=== PATIENT | female | born 1940 | race Hispanic/Latino ===

== ENCOUNTER 2017-06-25 14:44 | Inpatient (IN) | payer MEDICARE, BC ==
[2017-06-25 14:44] VITALS: BMI 23.8
[2017-06-25 15:56] LABS: BASO # 0.1 K/uL (0.0-0.2); BASO % 0.4 % (0.0-2.0); EOS # 0.1 K/uL (0.0-0.7); EOS % 0.3 % (0.0-4.0); HEMATOCRIT 36.6 % (34.0-47.0); LYMPH # 0.7 K/uL (1.0-4.3); LYMPH % 4.8 % (20.0-40.0); MEAN CELL VOLUME 90.2 fL (81.0-99.0); MEAN CORPUSCULAR HEMOGLOBIN 30.6 pg (27.0-31.0); MEAN CORPUSCULAR HGB CONC 33.9 g/dL (33.0-37.0); MEAN PLATELET VOLUME 10.7 fL (7.2-11.7); MONO # 1.3 K/uL (0.0-0.8); MONO % 8.4 % (0.0-10.0); PLATELET COUNT 252 K/uL (130-400); RED CELL DISTRIBUTION WIDTH 13.5 % (11.5-14.5)
[2017-06-25 15:57] LABS: WHITE BLOOD COUNT 15.3 K/uL (4.8-10.8)
[2017-06-25] MEDS ORDERED: Albuterol-Ipratrop 3 mg / 0.5 (3 ml) UD IH STA (16:03)
[2017-06-25 16:04] LABS: CHLORIDE 87 mmol/L (98-107)
[2017-06-25 16:05] LABS: POTASSIUM 3.1 mmol/L (3.6-5.2); SODIUM 129 mmol/L (132-148)
[2017-06-25 16:07] LABS: ALB/GLOB RATIO 1.1 (1.0-2.1); ALKALINE PHOSPHATASE 88 U/L (38-126); AST/SGOT 14 U/L (14-36); BILIRUBIN,TOTAL 0.7 mg/dL (0.2-1.3); CARBON DIOXIDE 31 mmol/L (22-30); GFR AFRICAN-AMERICAN > 60; TOTAL PROTEIN 7.4 g/dL (6.3-8.3)
[2017-06-25 16:08] LABS: ALT/SGPT 28 U/L (9-52); BLOOD UREA NITROGEN 17 mg/dL (7-17); CALCIUM 8.8 mg/dl (8.6-10.4); GLUCOSE,RANDOM 133 mg/dL (65-105)
[2017-06-25] MEDS ORDERED: Albuterol-Ipratrop 3 mg / 0.5 (3 ml) UD ONE (16:15)
--- NOTE | 2017-06-25 16:30 | RAD ---
HISTORY: cough COMPARISON: Chest x-ray performed 05/27/16 TECHNIQUE: Chest, one view. FINDINGS: LUNGS: Bilateral hilar prominence. Subtle patchy infiltrates/opacities, right upper, right middle, and left basilar atelectasis. Right apical pleural thickening/fluid. Please note that chest x-ray has limited sensitivity for the detection of pulmonary masses. PLEURA: Small left pleural effusion. No definite pneumothorax . CARDIOVASCULAR: Heart size appears within normal limits. OSSEOUS STRUCTURES: Scoliosis convex to the right. Osseous demineralization. Multilevel degenerative changes of the spine. VISUALIZED UPPER ABDOMEN: Unremarkable. OTHER FINDINGS: None. IMPRESSION: Bilateral hilar prominence. Patchy infiltrates/ opacities, right upper, right middle, and left basilar atelectasis. Right apical pleural thickening/fluid. Small left pleural effusion.
[2017-06-25] MEDS ORDERED: cefTRIAXone IV 1 gm in Dextros 50 ML IVPB STA (16:36)
[2017-06-25] MEDS ORDERED: Azithromycin 500 MG in Sodium Chloride 0.9% 250 ML IVPB STA (16:37)
[2017-06-25] MEDS ORDERED: cefTRIAXone IV 1 gm in Dextros 50 ML IVPB ONE (16:48)
[2017-06-25 16:53] LABS: EOSINOPHIL 1 % (0-4); NEUTROPHIL 78 % (50-75); TOTAL CELLS COUNTED 100
[2017-06-25] MEDS ORDERED: Lactated Ringer's 1,000 ML IVB STA (16:57)
--- NOTE | 2017-06-25 17:04 | C.PDOC ---
History Of Present Illness Pt has been having respiratory infection symptoms for the past few days. She was placed on oral antibiotics by her PMD without any improvement. Time Seen by Provider: 06/25/17 15:49 Chief Complaint (Nursing): Shortness Of Breath History Per: Patient Onset/Duration Of Symptoms: Days (few) Current Symptoms Are (Timing): Worse Initiating Event: Upper Respiratory Illness Quality: Pressure Severity: Severe Associated Symptoms: Fever, Productive Cough Reports Recently: Treated By A Physician Recent travel outside of the [place]: No Additional History Per: Prior Records Past Medical History Reviewed: Historical Data, Nursing Documentation, Vital Signs Vital Signs: Last Vital Signs Temp 98.1 F 06/25/17 14:51 Pulse 86 06/25/17 15:15 Resp 20 06/25/17 14:51 BP 119/67 06/25/17 14:51 Pulse Ox 83 L 06/25/17 14:51 - Medical History PMH: Anxiety, Bronchitis (bronchiectasis), COPD, Depression, HTN, Hypercholesterolemia, Pneumonia Other PMH: Scoliosis - [facility] Procedures ASSISTANCE WITH RESPIRATORY VENTILATION, 24-96 HRS (06/30/16) EXERCISE TRMT MUSCULOSK LOW BACK/LE W ASSIST EQUIP (06/30/16) GAIT TRAINING/AMBULAT TREATMENT USING ASSIST EQUIPMENT (06/30/16) HOME MANAGEMENT TREATMENT (06/30/16) ROM & JT MOBILITY TRMT MUSCULOSK LOW BACK/LE W ASSIST EQUIP (06/30/16) Family History: States: Unknown Family Hx - Social History Hx Tobacco Use: No Hx Alcohol Use: No Hx Substance Use: No - Immunization History Hx Tetanus Toxoid Vaccination: No Hx Influenza Vaccination: Yes Hx Pneumococcal Vaccination: No Review Of Systems Except As Marked, All Systems Reviewed And Found Negative. Constitutional: Positive for: Fever, Malaise ENT: Positive for: Nose Congestion, Throat Pain Cardiovascular: Positive for: Chest Pain Respiratory: Positive for: Cough, Shortness of Breath, Sputum. Negative for: Hemoptysis Gastrointestinal: Negative for: Vomiting, Abdominal Pain, Diarrhea Genitourinary: Negative for: Dysuria Musculoskeletal: Negative for: Neck Pain Skin: Negative for: Rash Neurological: Negative for: Weakness, Numbness Physical Exam - Physical Exam Appears: In Acute Distress (mild), Chronically Ill Skin: Normal Color, Warm, Dry Head: Atraumatic, Normacephalic Eye(s): bilateral: PERRL, EOMI Neck: Normal ROM, Supple Cardiovascular: Rhythm Regular Respiratory: Rhonchi Gastrointestinal/Abdominal: Soft, No Tenderness Back: No CVA Tenderness, Other (Scoliosis) Extremity: Normal ROM, No Pedal Edema, No Calf Tenderness Neurological/Psych: Oriented x3, Normal Motor, Normal Sensation ED Course And Treatment - Laboratory Results Result Diagrams: 06/25/17 15:53 06/25/17 15:53 Lab Interpretation: Abnormal Interpretation Of Abnormal: Leukocytosis ECG: Interpreted By Me, Viewed By Me ECG Rhythm: Sinus Rhythm, Nonspecific Changes ECG Interpretation: Abnormal Interpretation Of ECG: LVH Rate From EC O2 Sat by Pulse Oximetry: 83 Pulse Ox Interpretation: Abnormal Interpretation Of Abnormal: Hypoxia on RA - Radiology CXR: Viewed By Me, Read By Radiologist CXR Interpretation: Yes: Infiltrates Progress - Interventions Interventions:: Observation, Intravenous fluid, Oxygen - Medications Administered Inhaled nebulized: Anticholinergic, Beta-2 agonist Intravenous: Other (Abx) - Data Reviewed Data Reviewed: Lab, Diagnostic imaging, EKG, Old records - Patient Status Patient status: Partially improved - Critical Care Citical Care: Excluding Proc Time Critical Care Time: 45 minutes - Continuity of Care Discussed patient case with:: Patient, ED Nurse, PMD - Patient Plan Patient Plan: Admission Disposition Discussed With : Stan Jason Comment: He agreed with ED management and accepted pt on his service. Doctor Will See Patient In The: Hospital Counseled Patient/Family Regarding: Studies Performed, Diagnosis - Disposition Disposition: HOSPITALIZED Disposition Time: 17:07 Condition: GUARDED - Clinical Impression Clinical Impression: Pneumonia
--- NOTE | 2017-06-25 18:18 | CP.PCM.HP ---
History of Present Illness - History of Present Illness History of Present Illness: cough, fever, sob, discolored sputum for 3 days [employer] found to have abn cxr, increased wbc, hypoxemia in er will start Rx and obtain ID consult, with work up Present on Admission - Present on Admission Any Indicators Present on Admission: Yes Review of Systems - Review of Systems Systems not reviewed;Unavailable: Respiratory Distress - Constitutional Constitutional: Fever, Malaise, Weakness - Cardiovascular Cardiovascular: Dyspnea, Dyspnea on Exertion - Respiratory Respiratory: Cough, Chest Congestion, Excessive Mucous Production, Change in Mucous Color Past Patient History - Infectious Disease Hx of Infectious Diseases: None - Past Medical History & Family History Past Medical History?: Yes - Past Social History Smoking Status: Former Smoker - CARDIAC Hx Hypercholesterolemia: Yes Hx Hypertension: Yes - PULMONARY Hx Bronchitis: Yes (bronchiectasis) Hx Chronic Obstructive Pulmonary Disease (COPD): Yes Hx Pneumonia: Yes Other/Comment: bronchiectasis, scoliosis - NEUROLOGICAL Hx Neurological Disorder: No - HEENT Hx HEENT Problems: No - RENAL Hx Chronic Kidney Disease: No - ENDOCRINE/METABOLIC Hx Endocrine Disorders: No - HEMATOLOGICAL/ONCOLOGICAL Hx Blood Disorders: No - INTEGUMENTARY Hx Dermatological Problems: No - MUSCULOSKELETAL/RHEUMATOLOGICAL Hx Musculoskeletal Disorders: Yes Hx Falls: No Other/Comment: SCOLIOSIS - GASTROINTESTINAL Hx Gastrointestinal Disorders: No - GENITOURINARY/GYNECOLOGICAL Hx Genitourinary Disorders: No - PSYCHIATRIC Hx Anxiety: Yes Hx Depression: Yes Hx Substance Use: No - SURGICAL HISTORY Hx Surgeries: Yes Hx Cardiac Catheterization: Yes (Twice, [place] 2 [place] [facility] [place] Other/Comment: CYST REMOVAL FROM BACK - ANESTHESIA Hx Anesthesia: Yes Hx Anesthesia Reactions: No Hx Malignant Hyperthermia: No Meds Allergies/Adverse Reactions: Allergies Allergy/AdvReac Type Severity Reaction Status Date / Time moxifloxacin Allergy RASH Verified 06/25/17 14:50 Sulfa (Sulfonamide Allergy RASH Verified 06/25/17 14:50 Antibiotics) Physical Exam - Constitutional Appears: Chronically Ill - Head Exam Head Exam: ATRAUMATIC, NORMOCEPHALIC - Eye Exam Eye Exam: Normal appearance - ENT Exam ENT Exam: Mucous Membranes Moist - Respiratory Exam Respiratory Exam: Decreased Breath Sounds, Rhonchi - Cardiovascular Exam Cardiovascular Exam: +S1, +S2 - GI/Abdominal Exam GI & Abdominal Exam: Normal Bowel Sounds - Rectal Exam Rectal Exam: Deferred - Extremities Exam Extremities exam: Positive for: pedal pulses present - Neurological Exam Neurological exam: Alert, Oriented x3 - Psychiatric Exam Psychiatric exam: Normal Affect, Normal Mood - Skin Skin Exam: Intact Results - Vital Signs Recent Vital Signs: Last Vital Signs Temp 98.1 F 06/25/17 14:51 Pulse 83 06/25/17 18:02 Resp 21 06/25/17 18:02 BP 129/54 L 06/25/17 18:02 Pulse Ox 92 L 06/25/17 18:02 - Labs Result Diagrams: 06/25/17 15:53 06/25/17 15:53 Labs: Laboratory Results - last 24 hr 06/25/17 06/25/17 06/25/17 15:53 15:53 16:34 WBC 15.3 H D RBC 4.06 Hgb 12.4 Hct 36.6 MCV 90.2 MCH 30.6 MCHC 33.9 RDW 13.5 Plt Count 252 MPV 10.7 Neut % (Auto) 86.1 H Lymph % (Auto) 4.8 L [place] % (Auto) 8.4 Eos % (Auto) 0.3 Baso % (Auto) 0.4 Neut # 13.2 H Lymph # 0.7 L [place] # 1.3 H Eos # 0.1 Baso # 0.1 Neutrophils % (Manual) 78 H Band Neutrophils % 7 H Lymphocytes % (Manual) 6 L Monocytes % (Manual) 8 Eosinophils % (Manual) 1 Platelet Estimate Normal RBC Morphology Normal Sodium 129 L Potassium 3.1 L Chloride 87 L Carbon Dioxide 31 H Anion Gap 14 BUN 17 Creatinine 0.6 L Est GFR ( Amer) > 60 Est GFR (Non-Af Amer) > 60 Random Glucose 133 H Calcium 8.8 Total Bilirubin 0.7 AST 14 ALT 28 Alkaline Phosphatase 88 Troponin I < 0.0120 NT-Pro-B Natriuret Pep 854 Total Protein 7.4 Albumin 3.9 Globulin 3.5 Albumin/Globulin Ratio 1.1 Influenza Typ A,B (EIA) 06/25/17 16:39 WBC RBC Hgb Hct MCV MCH MCHC RDW Plt Count MPV Neut % (Auto) Lymph % (Auto) [place] % (Auto) Eos % (Auto) Baso % (Auto) Neut # Lymph # [place] # Eos # Baso # Neutrophils % (Manual) Band Neutrophils % Lymphocytes % (Manual) Monocytes % (Manual) Eosinophils % (Manual) Platelet Estimate RBC Morphology Sodium Potassium Chloride Carbon Dioxide Anion Gap BUN Creatinine Est GFR ( Amer) Est GFR (Non-Af Amer) Random Glucose Calcium Total Bilirubin AST ALT Alkaline Phosphatase Troponin I NT-Pro-B Natriuret Pep Total Protein Albumin Globulin Albumin/Globulin Ratio Influenza Typ A,B (EIA) Negative for flu a/b Assessment & Plan (1) Pneumonia Status: Acute (2) Hypoxia Status: Acute (3) Scoliosis deformity of spine Status: Chronic Priority: High (4) Dyspnea Status: Chronic (5) Bronchiectasis Status: Acute
[2017-06-25] MEDS ORDERED: Potassium Chloride 20 mEq ER Tab PO ONE (18:30)
[2017-06-25] MEDS: Acetylcysteine 20% Inhal Soln (4ml) INH SCH (19:50)
[2017-06-25] MEDS: Albuterol-Ipratrop 3 mg / 0.5 (3 ml) UD INH SCH (19:50)
[2017-06-25] MEDS: Budesonide 0.5 mg/2 ml Inhal Susp UD INH SCH (20:39)
[2017-06-25] MEDS ORDERED: Pneumococcal 23-Valent Vaccine IM ONE (21:31)
[2017-06-25] MEDS ORDERED: Influenza Vaccine 60 mcg/0.5 mL SYR (4YR UP) IM ONE (21:32)
[2017-06-26] MEDS: Acetylcysteine 20% Inhal Soln (4ml) INH SCH ×4 (01:28→19:50)
[2017-06-26] MEDS: Albuterol-Ipratrop 3 mg / 0.5 (3 ml) UD INH SCH ×4 (01:28→19:50)
[2017-06-26 07:16] LABS: BASO # 0.1 K/uL (0.0-0.2); BASO % 0.4 % (0.0-2.0); EOS # 0.1 K/uL (0.0-0.7); EOS % 0.4 % (0.0-4.0); HEMATOCRIT 35.7 % (34.0-47.0); LYMPH # 0.6 K/uL (1.0-4.3); MEAN CELL VOLUME 90.5 fL (81.0-99.0); MEAN CORPUSCULAR HEMOGLOBIN 29.2 pg (27.0-31.0); MEAN CORPUSCULAR HGB CONC 32.2 g/dL (33.0-37.0); MEAN PLATELET VOLUME 10.7 fL (7.2-11.7); MONO # 1.8 K/uL (0.0-0.8); MONO % 12.4 % (0.0-10.0); PLATELET COUNT 238 K/uL (130-400); RED CELL DISTRIBUTION WIDTH 13.5 % (11.5-14.5); WHITE BLOOD COUNT 14.4 K/uL (4.8-10.8)
[2017-06-26 07:56] LABS: CHLORIDE 92 mmol/L (98-107); POTASSIUM 3.5 mmol/L (3.6-5.2); SODIUM 133 mmol/L (132-148)
[2017-06-26] MEDS: Budesonide 0.5 mg/2 ml Inhal Susp UD INH SCH ×2 (07:58→19:50)
[2017-06-26 07:59] LABS: BLOOD UREA NITROGEN 16 mg/dL (7-17); CARBON DIOXIDE 31 mmol/L (22-30); GFR AFRICAN-AMERICAN > 60; GLUCOSE,RANDOM 121 mg/dL (65-105)
[2017-06-26 08:00] LABS: CALCIUM 8.7 mg/dl (8.6-10.4); MAGNESIUM 2.1 mg/dL (1.6-2.3)
[2017-06-26 08:47] LABS: ERYTHROCYTE SEDIMENTATION RATE 98 mm/hr (0-20)
[2017-06-26 09:54] LABS: EOSINOPHIL 1 % (0-4); NEUTROPHIL 84 % (50-75); TOTAL CELLS COUNTED 100
[2017-06-26] MEDS ORDERED: Azithromycin 500mg/250ML NS 500 MG/250 ML BAG IVPB SCH (10:00)
[2017-06-26] MEDS: Pantoprazole 40 mg EC Tab PO SCH (10:03)
[2017-06-26] MEDS: Azithromycin 500 MG in Sodium Chloride 0.9% 250 ML IVPB SCH (10:03)
[2017-06-26] MEDS: Sodium Chloride 0.45% 1,000 ML IV SCH (12:39)
[2017-06-26] MEDS ORDERED: Iodixanol 320 MG/ML 100 ML BOTTLE IV ONE (12:45)
--- NOTE | 2017-06-26 15:40 | CP.PCM.PN ---
Subjective - Date & Time of Evaluation Date of Evaluation: 06/26/17 Time of Evaluation: 15:36 - Subjective Subjective: CT CHEST WITH INFILTRARES > RIGHT THAN LEFT PT NOW ABLE TO EXPECTORATE SPUTUM WELL WITH NEBS Objective - Vital Signs/Intake and Output Vital Signs (last 24 hours): Temp Pulse Resp BP Pulse Ox 98.5 F 94 H 20 125/62 96 06/26/17 07:12 06/26/17 07:12 06/26/17 07:12 06/26/17 07:12 06/26/17 07:12 Intake and Output: 06/26/17 06/26/17 06:59 18:59 Intake Total 550 540 Balance 550 540 - Medications Medications: Current Medications Acetylcysteine (Acetylcysteine 20%) 4 ml INH RQ6 [facility] Last Admin: 06/26/17 13:23 Dose: 4 ml Albuterol/Ipratropium (Duoneb 3 Mg/0.5 Mg (3 Ml) Ud) 3 ml INH RQ6 [facility] Last Admin: 06/26/17 13:23 Dose: 3 ml Amlodipine Besylate (Norvasc) 5 mg PO DAILY [facility] Last Admin: 06/26/17 10:03 Dose: 5 mg Aspirin (Ecotrin) 81 mg PO BID [facility] Budesonide (Pulmicort Respules) 0.5 mg INH RQ12 [facility] Last Admin: 06/26/17 07:58 Dose: 0.5 mg Clonazepam (Klonopin) 0.5 mg PO BID PRN PRN Reason: Anxiety Heparin Sodium (Porcine) (Heparin) 5,000 units SC Q8 [facility] Last Admin: 06/26/17 13:50 Dose: 5,000 units Cefepime HCl 1 gm/ Dextrose 50 mls @ 100 mls/hr IVPB Q12H [facility] Last Admin: 06/26/17 11:56 Dose: 100 mls/hr Azithromycin 500 mg/ Sodium (Chloride) 250 mls @ 167 mls/hr IVPB Q24H [facility] Last Admin: 06/26/17 10:03 Dose: 167 mls/hr Sodium Chloride (Sodium Chloride 0.45%) 1,000 mls @ 80 mls/hr IV .[id number] [facility] Last Admin: 06/26/17 12:39 Dose: 80 mls/hr Nebivolol (Bystolic) 5 mg PO DAILY [facility] Last Admin: 06/26/17 09:17 Dose: 5 mg Pantoprazole Sodium (Protonix Ec Tab) 40 mg PO DAILY [facility] Last Admin: 06/26/17 10:03 Dose: 40 mg Rosuvastatin Calcium (Crestor) 10 mg PO HS [facility] - Labs Labs: 06/26/17 07:08 06/26/17 07:08 APTT 40 SECONDS (21-34) H 06/25/17 19:44 - Constitutional Appears: No Acute Distress, Chronically Ill - Head Exam Head Exam: ATRAUMATIC, NORMOCEPHALIC - Eye Exam Eye Exam: Normal appearance - ENT Exam ENT Exam: Mucous Membranes Moist - Neck Exam Neck Exam: Full ROM - Respiratory Exam Respiratory Exam: Decreased Breath Sounds, Rhonchi - Cardiovascular Exam Cardiovascular Exam: +S1, +S2 - GI/Abdominal Exam GI & Abdominal Exam: Normal Bowel Sounds - Rectal Exam Rectal Exam: Deferred - Neurological Exam Neurological Exam: Alert, Awake, Oriented x3 - Psychiatric Exam Psychiatric exam: Anxious - Skin Skin Exam: Intact Assessment and Plan (1) Pneumonia Status: Acute (2) Hypoxia Status: Acute (3) Scoliosis deformity of spine Status: Chronic (4) Dyspnea Status: Chronic (5) Bronchiectasis Status: Acute (6) Hypokalemia Status: Acute
--- NOTE | 2017-06-26 18:47 | CP.PCM.CON ---
History of Present Illness - History of Present Illness History of Present Illness: INFECTIOUS DISEASE CONSULTATION TRACY ALEXIS MD, FACP 3T 352-A 06/26/2017 CHART REVIEWED CASE DISCUSSED WITH DR HERIBERTO MAJANO ANDMELISSA'S JOSE AND DAVIDA PT EXAMINED APPARENTLY, THIS PATIENT WAS IN HER USUAL STATE OF HEALTH UNTIL THIS PAST THURSDAY WHEN SHE DEVELOPED ELEVATED TEMPS, SOB, CORTES AND TICK PRODUCTIVE SPUTUM, NOT RESPONDING TO OUT PAT TREATMENT ADVISED BY DR Devon MAJANO. TREATMENT WAS CONTINUED FOR A FEW DAYS WITHOUT ADEQUATE RESPONCE, PER PT, CONTINUED TEMPS AND COUGH, WITH THICK DARK SPUTUM. AN INFECTIOUS DISEASE CONSULTATION WAS REQUESTED BECAUSE OF HER NON RESPONSE AND UNDERLYING BRONCHIECTASIS, AND HYPOXIA IN THE ER/ED. PMHX: BEST CAN BE OBTAINED-AFFECT NOTED. ANXIETY DEPRESSION BRONCHITIS BRONCHIECTSIS HTN DYSLIPIDEMIA SCOLIOSIS, WITH BACK PAIN ETC, ETC. ALLERGIC TO AVELOX AND SULPHUR-MAKES HER HALLUCINATE EXSMOKER, 30 YRS AGO SOCIAL ETOH DENIES FAMILY MED PROBLEMS WBC 15.3-14.4 12.4/36/6 PLTS 252 SEGS 86 BANDS 7 ESR 98 K3.1-3.5 CXR: RIGHT MULTILOBE PNEUMONIA, MORE THAN LEFT LUNG OF NOTE AFFECT AND INTERACTION IS NOTED. Review of Systems - Review of Systems Systems not reviewed;Unavailable: Respiratory Distress - Constitutional Constitutional: Anorexia, Chills, Fever, Malaise - EENT Ears: absent: Ear Pain, Tinnitus Nose/Mouth/Throat: Nasal Congestion, Sinus Pressure, Dry Mouth. absent: Nasal Trauma, Sore Throat, Neck Pain - Cardiovascular Cardiovascular: Diaphoresis, Dyspnea on Exertion. absent: Chest Pain at Rest, Syncope - Respiratory Respiratory: Cough, Dyspnea, Chest Congestion, Excessive Mucous Production, Change in Mucous Color. absent: Hemoptysis, Stridor, Pain on Inspiration - Gastrointestinal Gastrointestinal: absent: Abdominal Pain, Belching, Bloating, Cramping, Diarrhea , Dyspepsia, Excessive Flatus, Hematochezia, Melena, Nausea, Vomiting - Musculoskeletal Musculoskeletal: Back Pain, Muscle Weakness, Stiffness - Integumentary Integumentary: Dry Skin. 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 Alcohol: Occasional - CARDIAC Hx Cardiac Disorders: Yes (CARDIAC CATH) Hx Hypercholesterolemia: Yes Hx Hypertension: Yes - PULMONARY Hx Respiratory Disorders: Yes Hx Bronchitis: Yes Hx Chronic Obstructive Pulmonary Disease (COPD): Yes Other/Comment: BRONCHIECTASIS - NEUROLOGICAL Hx Neurological Disorder: No - HEENT Hx HEENT Problems: No - RENAL Hx Chronic Kidney Disease: No - ENDOCRINE/METABOLIC Hx Endocrine Disorders: No - HEMATOLOGICAL/ONCOLOGICAL Hx Blood Disorders: No - INTEGUMENTARY Hx Dermatological Problems: No - MUSCULOSKELETAL/RHEUMATOLOGICAL Hx Musculoskeletal Disorders: Yes Hx Arthritis: Yes (BACK; SCOLIOSIS) Hx Back Pain: Yes Hx Osteoarthritis: Yes - GASTROINTESTINAL Hx Gastrointestinal Disorders: No - GENITOURINARY/GYNECOLOGICAL Hx Genitourinary Disorders: No - PSYCHIATRIC Hx Psychophysiologic Disorder: Yes Hx Anxiety: Yes Hx Depression: Yes Hx Psychosis: Yes (MEDICATION REACTION(?).) Hx Substance Use: No - SURGICAL HISTORY Hx Surgeries: Yes Hx Cardiac Catheterization: Yes (Twice, recent one was 2 and 1/2 years ago at [facility] [place] Other/Comment: CYST REMOVAL FROM BACK - ANESTHESIA Hx Anesthesia: Yes Hx Anesthesia Reactions: No Hx Malignant Hyperthermia: No Meds Allergies/Adverse Reactions: Allergies Allergy/AdvReac Type Severity Reaction Status Date / Time moxifloxacin Allergy RASH Verified 06/25/17 14:50 Sulfa (Sulfonamide Allergy RASH Verified 06/25/17 14:50 Antibiotics) - Medications Medications: Current Medications Acetylcysteine (Acetylcysteine 20%) 4 ml INH RQ6 [facility] Last Admin: 06/26/17 13:23 Dose: 4 ml Albuterol/Ipratropium (Duoneb 3 Mg/0.5 Mg (3 Ml) Ud) 3 ml INH RQ6 [facility] Last Admin: 06/26/17 13:23 Dose: 3 ml Amlodipine Besylate (Norvasc) 5 mg PO DAILY [facility] Last Admin: 06/26/17 10:03 Dose: 5 mg Aspirin (Ecotrin) 81 mg PO BID [facility] Last Admin: 06/26/17 18:28 Dose: 81 mg Budesonide (Pulmicort Respules) 0.5 mg INH RQ12 [facility] Last Admin: 06/26/17 07:58 Dose: 0.5 mg Clonazepam (Klonopin) 0.5 mg PO BID PRN PRN Reason: Anxiety Heparin Sodium (Porcine) (Heparin) 5,000 units SC Q8 [facility] Last Admin: 06/26/17 13:50 Dose: 5,000 units Cefepime HCl 1 gm/ Dextrose 50 mls @ 100 mls/hr IVPB Q12H [facility] Last Admin: 06/26/17 11:56 Dose: 100 mls/hr Azithromycin 500 mg/ Sodium (Chloride) 250 mls @ 167 mls/hr IVPB Q24H [facility] Last Admin: 06/26/17 10:03 Dose: 167 mls/hr Sodium Chloride (Sodium Chloride 0.45%) 1,000 mls @ 80 mls/hr IV .[id number] [facility] Last Admin: 06/26/17 12:39 Dose: 80 mls/hr Nebivolol (Bystolic) 5 mg PO DAILY [facility] Last Admin: 06/26/17 09:17 Dose: 5 mg Pantoprazole Sodium (Protonix Ec Tab) 40 mg PO DAILY [facility] Last Admin: 06/26/17 10:03 Dose: 40 mg Rosuvastatin Calcium (Crestor) 10 mg PO [facility] Physical Exam - Constitutional Appears: Non-toxic, Unkempt, Older Than Stated Age - Head Exam Head Exam: NORMAL INSPECTION - Eye Exam Eye Exam: Normal appearance - ENT Exam ENT Exam: Mucous Membranes Moist - Neck Exam Neck exam: Positive for: Normal Inspection - Respiratory Exam Respiratory Exam: Decreased Breath Sounds, Rhonchi - Cardiovascular Exam Cardiovascular Exam: REGULAR RHYTHM - GI/Abdominal Exam GI & Abdominal Exam: Normal Bowel Sounds, Soft. absent: Mass, Rebound - Rectal Exam Rectal Exam: Deferred - Neurological Exam Neurological exam: Alert, Oriented x3 - Psychiatric Exam Psychiatric exam: Anxious, Flat Affect - Skin Skin Exam: Warm Results - Vital Signs Recent Vital Signs: Last Vital Signs Temp 98.7 F 06/26/17 16:51 Pulse 92 H 06/26/17 16:51 Resp 20 06/26/17 16:51 BP 117/61 06/26/17 16:51 Pulse Ox 92 L 06/26/17 16:51 - Labs Result Diagrams: 06/26/17 07:08 06/26/17 07:08 Labs: Laboratory Results - last 24 hr 06/25/17 06/26/17 06/26/17 19:44 07:08 07:08 WBC 14.4 H RBC 3.94 Hgb 11.5 Hct 35.7 MCV 90.5 MCH 29.2 MCHC 32.2 L RDW 13.5 Plt Count 238 MPV 10.7 Neut % (Auto) 82.8 H Lymph % (Auto) 4.[address] [facility] % (Auto) 12.4 H Eos % (Auto) 0.4 Baso % (Auto) 0.4 Neut # 11.9 H Lymph # 0.[address] [facility] # 1.8 H Eos # 0.1 Baso # 0.1 Neutrophils % (Manual) 84 H Band Neutrophils % 1 Lymphocytes % (Manual) 4 L Monocytes % (Manual) 10 Eosinophils % (Manual) 1 Platelet Estimate Normal Hypochromasia (manual) Slight Poikilocytosis (manual Slight Anisocytosis (manual) Slight ESR 98 H APTT 40 H Sodium Potassium Chloride Carbon Dioxide Anion Gap BUN Creatinine Est GFR ( Amer) Est GFR (Non-Af Amer) Random Glucose Calcium Magnesium Ur L.pneumophila Ag Mycoplasma pneumon IgM Negative 06/26/17 06/26/17 07:08 08:30 WBC RBC Hgb Hct MCV MCH MCHC RDW Plt Count MPV Neut % (Auto) Lymph % (Auto) [facility] % (Auto) Eos % (Auto) Baso % (Auto) Neut # Lymph # [facility] # Eos # Baso # Neutrophils % (Manual) Band Neutrophils % Lymphocytes % (Manual) Monocytes % (Manual) Eosinophils % (Manual) Platelet Estimate Hypochromasia (manual) Poikilocytosis (manual Anisocytosis (manual) ESR APTT Sodium 133 Potassium 3.5 L Chloride 92 L Carbon Dioxide 31 H Anion Gap 14 BUN 16 Creatinine 0.5 L Est GFR ( Amer) > 60 Est GFR (Non-Af Amer) > 60 Random Glucose 121 H Calcium 8.7 Magnesium 2.1 Ur L.pneumophila Ag Negative Mycoplasma pneumon IgM Assessment & Plan (1) Pneumonia Status: Acute Priority: High Comment: RIGHT MORE THAN LEFT. ADJUSTED ANTIBIOTICS WITH ZITHROMAZ AND MAXIPIME. (2) Bronchiectasis Status: Chronic (3) Acute exacerbation of COPD with asthma Status: Acute Priority: Low (4) Hypoxia Status: Acute Priority: Medium (5) Hypertension, benign essential, goal below 140/90 Status: Chronic (6) Scoliosis deformity of spine Status: Chronic Priority: Low (7) Hypokalemia Status: Acute Priority: Medium
[2017-06-27] MEDS: Sodium Chloride 0.45% 1,000 ML IV SCH ×2 (01:00→13:30)
[2017-06-27] MEDS: Acetylcysteine 20% Inhal Soln (4ml) INH SCH ×4 (01:31→19:10)
[2017-06-27] MEDS: Albuterol-Ipratrop 3 mg / 0.5 (3 ml) UD INH SCH ×4 (01:31→19:10)
[2017-06-27 07:03] LABS: BASO % 0.3 % (0.0-2.0); EOS % 0.1 % (0.0-4.0); HEMATOCRIT 35.4 % (34.0-47.0); LYMPH # 0.9 K/uL (1.0-4.3); LYMPH % 5.9 % (20.0-40.0); MEAN CELL VOLUME 91.6 fL (81.0-99.0); MEAN CORPUSCULAR HEMOGLOBIN 29.9 pg (27.0-31.0); MEAN CORPUSCULAR HGB CONC 32.6 g/dL (33.0-37.0); MEAN PLATELET VOLUME 10.4 fL (7.2-11.7); MONO # 1.9 K/uL (0.0-0.8); MONO % 13.1 % (0.0-10.0); PLATELET COUNT 309 K/uL (130-400); RED CELL DISTRIBUTION WIDTH 14.1 % (11.5-14.5); WHITE BLOOD COUNT 14.9 K/uL (4.8-10.8)
[2017-06-27 07:10] LABS: CHLORIDE 93 mmol/L (98-107); POTASSIUM 3.5 mmol/L (3.6-5.2); SODIUM 138 mmol/L (132-148)
[2017-06-27 07:13] LABS: BLOOD UREA NITROGEN 13 mg/dL (7-17); CARBON DIOXIDE 34 mmol/L (22-30); GFR AFRICAN-AMERICAN > 60
[2017-06-27 07:14] LABS: CALCIUM 9.1 mg/dl (8.6-10.4); GLUCOSE,RANDOM 127 mg/dL (65-105)
[2017-06-27] MEDS: Budesonide 0.5 mg/2 ml Inhal Susp UD INH SCH ×2 (07:35→19:10)
[2017-06-27 09:03] LABS: EOSINOPHIL 1 % (0-4); NEUTROPHIL 77 % (50-75); TOTAL CELLS COUNTED 100
[2017-06-27] MEDS: Pantoprazole 40 mg EC Tab PO SCH (10:10)
[2017-06-27] MEDS: Azithromycin 500 MG in Sodium Chloride 0.9% 250 ML IVPB SCH (10:10)
--- NOTE | 2017-06-27 14:21 | CP.PCM.PN ---
Subjective - Date & Time of Evaluation Date of Evaluation: 06/27/17 Time of Evaluation: 14:17 - Subjective Subjective: INFECTIOUS DISEASE PROGRESS NOTE TRACY ALEXIS MD, FACP 3T 352-A 06/27/2017 CHART REVIEWED PT EXAMINED CASE DISCUSSED PT WITH FRIENDS AROUND AFFECT NOTED, TELLING EVERYONE SHE WILL BE GOING HOME TOMORROW EITHER WAY. AWAKE LUNGS CONGESTED AFEBRILE COR NOTED ABD SOFT EXT NOT CYANOTIC SINCE HER WBC HAS NOT SIGNIFICANTLY CHANGED, WILL INCREASE HER MAXIPIME TO 2 GM IVPB Q 12HOURS. PROGNOSIS IS GUARDED CONSIDER PSY(?). Objective - Vital Signs/Intake and Output Vital Signs (last 24 hours): Temp Pulse Resp BP Pulse Ox 98.7 F 92 H 20 117/61 92 L 06/26/17 16:51 06/26/17 16:51 06/26/17 16:51 06/26/17 16:51 06/26/17 16:51 Intake and Output: 06/27/17 06/27/17 06:59 18:59 Intake Total 840 Balance 840 - Medications Medications: Current Medications Acetylcysteine (Acetylcysteine 20%) 4 ml INH RQ6 [facility] Last Admin: 06/27/17 13:30 Dose: 4 ml Albuterol/Ipratropium (Duoneb 3 Mg/0.5 Mg (3 Ml) Ud) 3 ml INH RQ6 [facility] Last Admin: 06/27/17 13:30 Dose: 3 ml Amlodipine Besylate (Norvasc) 5 mg PO DAILY [facility] Last Admin: 06/27/17 10:10 Dose: 5 mg Aspirin (Ecotrin) 81 mg PO BID [facility] Last Admin: 06/27/17 10:10 Dose: 81 mg Budesonide (Pulmicort Respules) 0.5 mg INH RQ12 [facility] Last Admin: 06/27/17 07:35 Dose: 0.5 mg Clonazepam (Klonopin) 0.5 mg PO BID PRN PRN Reason: Anxiety Last Admin: 06/26/17 21:23 Dose: 0.5 mg Heparin Sodium (Porcine) (Heparin) 5,000 units SC Q8 [facility] Last Admin: 06/27/17 13:45 Dose: 5,000 units Cefepime HCl 1 gm/ Dextrose 50 mls @ 100 mls/hr IVPB Q12H [facility] Last Admin: 06/27/17 12:43 Dose: 100 mls/hr Azithromycin 500 mg/ Sodium (Chloride) 250 mls @ 167 mls/hr IVPB Q24H [facility] Last Admin: 06/27/17 10:10 Dose: 167 mls/hr Sodium Chloride (Sodium Chloride 0.45%) 1,000 mls @ 80 mls/hr IV .[id number] [facility] Last Admin: 06/27/17 13:30 Dose: 80 mls/hr Nebivolol (Bystolic) 5 mg PO DAILY [facility] Last Admin: 06/27/17 10:10 Dose: 5 mg Pantoprazole Sodium (Protonix Ec Tab) 40 mg PO DAILY [facility] Last Admin: 06/27/17 10:10 Dose: 40 mg Rosuvastatin Calcium (Crestor) 10 mg PO HS [facility] Last Admin: 06/26/17 21:23 Dose: 10 mg - Labs Labs: 06/27/17 06:55 06/27/17 06:55 APTT 40 SECONDS (21-34) H 06/25/17 19:44 - Constitutional Appears: Non-toxic, Older Than Stated Age - Eye Exam Eye Exam: Normal appearance - ENT Exam ENT Exam: Mucous Membranes Moist - Neck Exam Neck Exam: Normal Inspection - Respiratory Exam Respiratory Exam: Rhonchi, NORMAL BREATHING PATTERN - Cardiovascular Exam Cardiovascular Exam: REGULAR RHYTHM - Rectal Exam Rectal Exam: Deferred - Neurological Exam Neurological Exam: Alert - Psychiatric Exam Psychiatric exam: Agitated, Flat Affect - Skin Skin Exam: Dry Assessment and Plan (1) Pneumonia Assessment & Plan: INCREASE MAXIPIJE TO 2 GMS IVPB Q 12HOURS. Status: Acute (2) Bronchiectasis Status: Chronic (3) Acute exacerbation of COPD with asthma Status: Acute (4) Hypoxia Status: Acute (5) Hypertension, benign essential, goal below 140/90 Status: Chronic (6) Scoliosis deformity of spine Status: Chronic (7) Hypokalemia Status: Acute
[2017-06-28] MEDS: Cefepime IV 2 gm in Dextrose 2 GM/100 ML BAG IVPB SCH ×3 (00:12→23:59)
[2017-06-28] MEDS: Albuterol-Ipratrop 3 mg / 0.5 (3 ml) UD INH SCH ×4 (02:57→19:12)
[2017-06-28] MEDS: Acetylcysteine 20% Inhal Soln (4ml) INH SCH ×4 (02:57→19:12)
[2017-06-28] MEDS: Sodium Chloride 0.45% 1,000 ML IV SCH ×3 (04:53→23:59)
[2017-06-28] MEDS: Budesonide 0.5 mg/2 ml Inhal Susp UD INH SCH ×2 (07:15→19:12)
[2017-06-28] MEDS: Pantoprazole 40 mg EC Tab PO SCH (09:08)
[2017-06-28] MEDS: Azithromycin 500 MG in Sodium Chloride 0.9% 250 ML IVPB SCH (10:29)
[2017-06-28 14:26] VITALS: RESP 20
--- NOTE | 2017-06-28 18:23 | CARD ---
APPROVED REPORT EKG Measurement Heart [id number] <Conclusion> Normal sinus rhythm Possible Left atrial enlargement Left ventricular hypertrophy Abnormal ECG
--- NOTE | 2017-06-28 23:23 | CP.PCM.PN ---
Subjective - Date & Time of Evaluation Date of Evaluation: 06/28/17 Time of Evaluation: 15:00 - Subjective Subjective: INFECTIOUS DISEASE PROGRESS NOTE TRACY ALEXIS MD, FACP 3T 352-A 06/28/2017 CHART REVIEWED CASE DISCUSSED WITH MELISSA CASE PT'S AFFECT NOTED QUESTION OF INFECTED BRONCHIECTASIS INCREASED MAXIPIME TO 2 GMS IVPB Q 12 HOURS REPEAT LABS ORDERED FOR THURSDAY MORNING PTS AFFECT AND MOOD NOTED CONSIDER PSY EVALUATION Objective - Vital Signs/Intake and Output Vital Signs (last 24 hours): Temp Pulse Resp BP Pulse Ox 98.5 F 81 20 103/60 94 L 06/28/17 15:00 06/28/17 15:00 06/28/17 15:00 06/28/17 15:00 06/28/17 15:00 Intake and Output: 06/28/17 06/29/17 18:59 06:59 Intake Total 1240 890 Balance 1240 890 - Medications Medications: Current Medications Acetylcysteine (Acetylcysteine 20%) 4 ml INH RQ6 [facility] Last Admin: 06/28/17 19:12 Dose: 4 ml Albuterol/Ipratropium (Duoneb 3 Mg/0.5 Mg (3 Ml) Ud) 3 ml INH RQ6 [facility] Last Admin: 06/28/17 19:12 Dose: 3 ml Amlodipine Besylate (Norvasc) 5 mg PO DAILY [facility] Last Admin: 06/28/17 09:08 Dose: 5 mg Aspirin (Ecotrin) 81 mg PO BID [facility] Last Admin: 06/28/17 17:32 Dose: 81 mg Budesonide (Pulmicort Respules) 0.5 mg INH RQ12 [facility] Last Admin: 06/28/17 19:12 Dose: 0.5 mg Clonazepam (Klonopin) 0.5 mg PO BID PRN PRN Reason: Anxiety Last Admin: 06/28/17 21:22 Dose: 0.5 mg Azithromycin 500 mg/ Sodium (Chloride) 250 mls @ 167 mls/hr IVPB Q24H [facility] Last Admin: 06/28/17 10:29 Dose: 167 mls/hr Sodium Chloride (Sodium Chloride 0.45%) 1,000 mls @ 80 mls/hr IV .[id number] [facility] Last Admin: 06/28/17 13:32 Dose: Not Given Cefepime HCl (Maxipime Iv 2 Gm Premix) 2 gm in 100 mls @ 200 mls/hr IVPB Q12H [facility] Last Admin: 06/28/17 12:59 Dose: 200 mls/hr Nebivolol (Bystolic) 5 mg PO DAILY [facility] Last Admin: 06/28/17 09:09 Dose: 5 mg Pantoprazole Sodium (Protonix Ec Tab) 40 mg PO DAILY [facility] Last Admin: 06/28/17 09:08 Dose: 40 mg Rosuvastatin Calcium (Crestor) 10 mg PO HS [facility] Last Admin: 06/28/17 21:21 Dose: 10 mg - Labs Labs: 06/27/17 06:55 06/27/17 06:55 APTT 40 SECONDS (21-34) H 06/25/17 19:44 Assessment and Plan (1) Pneumonia Status: Acute (2) Bronchiectasis Status: Chronic (3) Acute exacerbation of COPD with asthma Status: Acute (4) Hypoxia Status: Acute (5) Hypertension, benign essential, goal below 140/90 Status: Chronic (6) Scoliosis deformity of spine Status: Chronic (7) Hypokalemia Status: Acute
[2017-06-29] MEDS: Acetylcysteine 20% Inhal Soln (4ml) INH SCH ×4 (01:27→19:15)
[2017-06-29] MEDS: Albuterol-Ipratrop 3 mg / 0.5 (3 ml) UD INH SCH ×4 (01:28→19:15)
[2017-06-29] MEDS: Sodium Chloride 0.45% 1,000 ML IV SCH ×2 (02:19→17:28)
[2017-06-29] MEDS: Budesonide 0.5 mg/2 ml Inhal Susp UD INH SCH ×2 (07:10→19:16)
[2017-06-29 07:17] LABS: BASO # 0.1 K/uL (0.0-0.2); BASO % 0.7 % (0.0-2.0); EOS # 0.1 K/uL (0.0-0.7); EOS % 1.1 % (0.0-4.0); HEMATOCRIT 34.4 % (34.0-47.0); LYMPH % 10.9 % (20.0-40.0); MEAN CELL VOLUME 90.6 fL (81.0-99.0); MEAN CORPUSCULAR HEMOGLOBIN 29.9 pg (27.0-31.0); MEAN PLATELET VOLUME 10.2 fL (7.2-11.7); MONO % 10.9 % (0.0-10.0); RED CELL DISTRIBUTION WIDTH 13.9 % (11.5-14.5); WHITE BLOOD COUNT 8.9 K/uL (4.8-10.8)
[2017-06-29] MEDS: Azithromycin 500 MG in Sodium Chloride 0.9% 250 ML IVPB SCH (09:54)
[2017-06-29] MEDS: Pantoprazole 40 mg EC Tab PO SCH (09:55)
--- NOTE | 2017-06-29 11:52 | CT ---
PROCEDURE: CT Chest with contrast HISTORY: abnormal cxr COMPARISON: Chest CT with contrast 06/23/2013. TECHNIQUE: Contiguous axial images were obtained through the chest with intravenous contrast enhancement. Sagittal and coronal reconstructions were performed. IV contrast: The due date 12/01, 100 cc. Radiation dose (DLP): 188.13 mGy-cm. This CT exam was performed using one or more of the following dose reduction techniques: Automated exposure control, adjustment of the mA and/or kV according to patient size, and/or use of iterative reconstruction technique. FINDINGS: LUNGS: Increased dependent atelectasis favored over scattered pneumonia is more so on the right than left lungs. Nondependent infiltrate is suspected at the lingula and medial mid at left upper lobe. Central airways are clear. There is no pneumothorax. Deformity of the chest is caused by a gross thoracic scoliotic deformity. MEDIASTINUM: Mediastinum is distorted by scoliosis with cardiac size grossly within normal limits. Trace pericardial thickening or effusion is seen. Minimal bilateral pleural effusions are appreciated. The thoracic inlet appears unremarkable there is no significant lymphadenopathy thoracic aorta is normal in caliber. BONES: No fracture. No destructive lesion. Scoliotic thoracic spine as discussed above. UPPER ABDOMEN: Grossly unremarkable. OTHER FINDINGS: None. IMPRESSION: Lingular and at more cephalad left upper lobe pneumonia is suspected however increased bilateral dependent atelectasis appreciate the upper and lower lobes in the interval. No pneumothorax. Trace bilateral pleural effusions and pericardial effusion. No significant lymphadenopathy. Gross scoliotic deformity reiterated. MTDD
[2017-06-29] MEDS: Cefepime IV 2 gm in Dextrose 2 GM/100 ML BAG IVPB SCH (12:42)
--- NOTE | 2017-06-29 15:38 | CP.PCM.PN ---
Subjective - Date & Time of Evaluation Date of Evaluation: 06/29/17 Time of Evaluation: 15:33 - Subjective Subjective: feels better wishes to be discharged tomorrow Objective - Vital Signs/Intake and Output Vital Signs (last 24 hours): Temp Pulse Resp BP Pulse Ox 98.4 F 85 20 118/75 95 06/29/17 07:23 06/29/17 07:23 06/29/17 07:23 06/29/17 07:23 06/29/17 07:23 Intake and Output: 06/29/17 06/29/17 06:59 18:59 Intake Total 1850 1160 Balance 1850 1160 - Medications Medications: Current Medications Acetylcysteine (Acetylcysteine 20%) 4 ml INH RQ6 [facility] Last Admin: 06/29/17 13:05 Dose: 4 ml Albuterol/Ipratropium (Duoneb 3 Mg/0.5 Mg (3 Ml) Ud) 3 ml INH RQ6 [facility] Last Admin: 06/29/17 13:04 Dose: 3 ml Amlodipine Besylate (Norvasc) 5 mg PO DAILY [facility] Last Admin: 06/29/17 09:56 Dose: 5 mg Aspirin (Ecotrin) 81 mg PO BID [facility] Last Admin: 06/29/17 09:55 Dose: 81 mg Budesonide (Pulmicort Respules) 0.5 mg INH RQ12 [facility] Last Admin: 06/29/17 07:10 Dose: Not Given Clonazepam (Klonopin) 0.5 mg PO BID PRN PRN Reason: Anxiety Last Admin: 06/29/17 09:56 Dose: 0.5 mg Azithromycin 500 mg/ Sodium (Chloride) 250 mls @ 167 mls/hr IVPB Q24H [facility] Last Admin: 06/29/17 09:54 Dose: 167 mls/hr Cefepime HCl (Maxipime Iv 2 Gm Premix) 2 gm in 100 mls @ 200 mls/hr IVPB Q12H [facility] Last Admin: 06/29/17 12:42 Dose: 200 mls/hr Nebivolol (Bystolic) 5 mg PO DAILY [facility] Last Admin: 06/29/17 09:55 Dose: 5 mg Pantoprazole Sodium (Protonix Ec Tab) 40 mg PO DAILY [facility] Last Admin: 06/29/17 09:55 Dose: 40 mg Rosuvastatin Calcium (Crestor) 10 mg PO [facility] Last Admin: 06/28/17 21:21 Dose: 10 mg - Labs Labs: 06/29/17 07:04 06/27/17 06:55 APTT 40 SECONDS (21-34) H 06/25/17 19:44 - Constitutional Appears: No Acute Distress, Chronically Ill - Head Exam Head Exam: ATRAUMATIC, NORMOCEPHALIC - Eye Exam Eye Exam: Normal appearance - ENT Exam ENT Exam: Mucous Membranes Moist - Neck Exam Neck Exam: Normal Inspection - Respiratory Exam Respiratory Exam: Decreased Breath Sounds, Prolonged Expiratory Phase - Cardiovascular Exam Cardiovascular Exam: +S1, +S2 - GI/Abdominal Exam GI & Abdominal Exam: Normal Bowel Sounds - Rectal Exam Rectal Exam: Deferred - Neurological Exam Neurological Exam: Alert, Oriented x3 - Psychiatric Exam Psychiatric exam: Normal Affect, Normal Mood - Skin Skin Exam: Intact Assessment and Plan (1) Pneumonia Status: Acute (2) Hypoxia Status: Acute (3) Scoliosis deformity of spine Status: Chronic (4) Dyspnea Status: Chronic (5) Bronchiectasis Status: Chronic (6) Hypokalemia Status: Acute
[2017-06-29] MEDS: Potassium Chloride 20 mEq ER Tab PO SCH (16:23)
--- NOTE | 2017-06-29 17:29 | CP.PCM.PN ---
Subjective - Date & Time of Evaluation Date of Evaluation: 06/29/17 Time of Evaluation: 17:26 - Subjective Subjective: INFECTIOUS DISEASE PROGRESS NOTE TRCAY ALEXIS MD, FACP 3T 352-A 06/29/2017 CLINICALLY RESPONDING, FINALLY TO INCREASED DOSES OF MAXIPIME AND ZITHROMAX WBC FINALLY RESPONDS TO TREATMENT LOOKS DISCHELVED THIS AFTERNOON. LUNGS BETTER COR RR ABD SOFT EXT NO CYANOSIS WBC PER CHARTING SYSTEM CONSIDER PO VANTIN BID, WHEN READY. Objective - Vital Signs/Intake and Output Vital Signs (last 24 hours): Temp Pulse Resp BP Pulse Ox 97.6 F 68 20 124/63 95 06/29/17 15:00 06/29/17 15:00 06/29/17 15:00 06/29/17 15:00 06/29/17 15:00 Intake and Output: 06/29/17 06/29/17 06:59 18:59 Intake Total 1850 1160 Balance 1850 1160 - Medications Medications: Current Medications Acetylcysteine (Acetylcysteine 20%) 4 ml INH RQ6 [facility] Last Admin: 06/29/17 13:05 Dose: 4 ml Albuterol/Ipratropium (Duoneb 3 Mg/0.5 Mg (3 Ml) Ud) 3 ml INH RQ6 [facility] Last Admin: 06/29/17 13:04 Dose: 3 ml Amlodipine Besylate (Norvasc) 5 mg PO DAILY [facility] Last Admin: 06/29/17 09:56 Dose: 5 mg Aspirin (Ecotrin) 81 mg PO BID [facility] Last Admin: 06/29/17 09:55 Dose: 81 mg Budesonide (Pulmicort Respules) 0.5 mg INH RQ12 [facility] Last Admin: 06/29/17 07:10 Dose: Not Given Clonazepam (Klonopin) 0.5 mg PO BID PRN PRN Reason: Anxiety Last Admin: 06/29/17 09:56 Dose: 0.5 mg Heparin Sodium (Porcine) (Heparin) 5,000 units SC Q8 [facility] Azithromycin 500 mg/ Sodium (Chloride) 250 mls @ 167 mls/hr IVPB Q24H [facility] Last Admin: 06/29/17 09:54 Dose: 167 mls/hr Cefepime HCl (Maxipime Iv 2 Gm Premix) 2 gm in 100 mls @ 200 mls/hr IVPB Q12H [facility] Last Admin: 06/29/17 12:42 Dose: 200 mls/hr Sodium Chloride (Sodium Chloride 0.45%) 1,000 mls @ 80 mls/hr IV .[id number] [facility] Nebivolol (Bystolic) 5 mg PO DAILY [facility] Last Admin: 06/29/17 09:55 Dose: 5 mg Pantoprazole Sodium (Protonix Ec Tab) 40 mg PO DAILY [facility] Last Admin: 06/29/17 09:55 Dose: 40 mg Potassium Chloride (K-Dur 20 Meq Er Tab) 20 meq PO DAILY [facility] Last Admin: 06/29/17 16:23 Dose: 20 meq Rosuvastatin Calcium (Crestor) 10 mg PO HS [facility] Last Admin: 06/28/17 21:21 Dose: 10 mg - Labs Labs: 06/29/17 07:04 06/27/17 06:55 APTT 40 SECONDS (21-34) H 06/25/17 19:44 - Constitutional Appears: Non-toxic, Older Than Stated Age - Head Exam Head Exam: NORMAL INSPECTION - ENT Exam ENT Exam: Mucous Membranes Moist - Respiratory Exam Respiratory Exam: Decreased Breath Sounds, NORMAL BREATHING PATTERN - Cardiovascular Exam Cardiovascular Exam: REGULAR RHYTHM - GI/Abdominal Exam GI & Abdominal Exam: Soft. absent: Tenderness, Mass, Rebound - Rectal Exam Rectal Exam: Deferred - Neurological Exam Neurological Exam: Alert, Awake - Skin Skin Exam: Warm Assessment and Plan (1) Pneumonia Status: Acute (2) Bronchiectasis Status: Chronic (3) Acute exacerbation of COPD with asthma Status: Acute (4) Hypoxia Status: Acute (5) Hypertension, benign essential, goal below 140/90 Status: Chronic (6) Scoliosis deformity of spine Status: Chronic (7) Hypokalemia Status: Acute
[2017-06-30] MEDS: Cefepime IV 2 gm in Dextrose 2 GM/100 ML BAG IVPB SCH ×2 (00:14→12:43)
[2017-06-30] MEDS: Albuterol-Ipratrop 3 mg / 0.5 (3 ml) UD INH SCH ×4 (01:13→19:47)
[2017-06-30] MEDS: Acetylcysteine 20% Inhal Soln (4ml) INH SCH ×4 (01:13→19:47)
[2017-06-30] MEDS: Budesonide 0.5 mg/2 ml Inhal Susp UD INH SCH ×2 (07:31→19:47)
[2017-06-30] MEDS: Sodium Chloride 0.45% 1,000 ML IV SCH ×3 (07:39→17:34)
[2017-06-30] MEDS: Potassium Chloride 20 mEq ER Tab PO SCH (09:53)
[2017-06-30] MEDS: Pantoprazole 40 mg EC Tab PO SCH (09:54)
[2017-06-30] MEDS: Azithromycin 500 MG in Sodium Chloride 0.9% 250 ML IVPB SCH (09:54)
[2017-06-30 11:59] LABS: CHLORIDE 90 mmol/L (98-107); SODIUM 135 mmol/L (132-148)
[2017-06-30 12:00] LABS: POTASSIUM 3.8 mmol/L (3.6-5.2)
[2017-06-30 12:02] LABS: GFR AFRICAN-AMERICAN > 60
[2017-06-30 12:03] LABS: BLOOD UREA NITROGEN 11 mg/dL (7-17); CALCIUM 8.7 mg/dl (8.6-10.4); GLUCOSE,RANDOM 97 mg/dL (65-105)
[2017-06-30 12:12] LABS: CARBON DIOXIDE 40 mmol/L (22-30)
--- NOTE | 2017-06-30 17:48 | CP.PCM.PN ---
Subjective - Date & Time of Evaluation Date of Evaluation: 06/30/17 Time of Evaluation: 17:45 - Subjective Subjective: INFECTIOUS DISEASE PROGRESS NOTE TRACY ALEXIS MD, FACP 3T 352-A 06/30/2017 CHART REVIEWED PT EXAMINED CASE DISCUSSED QUESTION OF DECREASED PULSE OXIMETER, ESPECIALLY AFTER ANY AMBULATION(?). REVIEWED WITH MELISSA POLLACK DECREASED BREATH SOUNDS COR NOTED ABD SOFT HX OF BRONCHIECTASIS, INFECTED VS PNEUMONIA TO D/C ZITHROMAX TODAY. Objective - Vital Signs/Intake and Output Vital Signs (last 24 hours): Temp Pulse Resp BP Pulse Ox 98.7 F 82 20 131/64 93 L 06/30/17 15:00 06/30/17 15:00 06/30/17 15:00 06/30/17 15:00 06/30/17 15:00 Intake and Output: 06/30/17 06/30/17 06:59 18:59 Intake Total 1410 1190 Output Total 400 Balance 1010 1190 - Medications Medications: Current Medications Acetylcysteine (Acetylcysteine 20%) 4 ml INH RQ6 [facility] Last Admin: 06/30/17 13:49 Dose: 4 ml Albuterol/Ipratropium (Duoneb 3 Mg/0.5 Mg (3 Ml) Ud) 3 ml INH RQ6 [facility] Last Admin: 06/30/17 13:49 Dose: 3 ml Amlodipine Besylate (Norvasc) 5 mg PO DAILY [facility] Last Admin: 06/30/17 09:53 Dose: 5 mg Aspirin (Ecotrin) 81 mg PO BID [facility] Last Admin: 06/30/17 17:34 Dose: 81 mg Budesonide (Pulmicort Respules) 0.5 mg INH RQ12 [facility] Last Admin: 06/30/17 07:31 Dose: 0.5 mg Clonazepam (Klonopin) 0.5 mg PO BID PRN PRN Reason: Anxiety Last Admin: 06/30/17 10:00 Dose: 0.5 mg Heparin Sodium (Porcine) (Heparin) 5,000 units SC Q8 [facility] Last Admin: 06/30/17 13:35 Dose: 5,000 units Cefepime HCl (Maxipime Iv 2 Gm Premix) 2 gm in 100 mls @ 200 mls/hr IVPB Q12H [facility] Last Admin: 06/30/17 12:43 Dose: 200 mls/hr Sodium Chloride (Sodium Chloride 0.45%) 1,000 mls @ 80 mls/hr IV .[id number] [facility] Last Admin: 06/30/17 17:34 Dose: 80 mls/hr Nebivolol (Bystolic) 5 mg PO DAILY [facility] Last Admin: 06/30/17 09:54 Dose: 5 mg Pantoprazole Sodium (Protonix Ec Tab) 40 mg PO DAILY [facility] Last Admin: 06/30/17 09:54 Dose: 40 mg Potassium Chloride (K-Dur 20 Meq Er Tab) 20 meq PO DAILY [facility] Last Admin: 06/30/17 09:53 Dose: 20 meq Rosuvastatin Calcium (Crestor) 10 mg PO HS [facility] Last Admin: 06/29/17 22:48 Dose: Not Given - Labs Labs: 06/29/17 07:04 06/30/17 11:36 APTT 40 SECONDS (21-34) H 06/25/17 19:44 - Constitutional Appears: Non-toxic, Older Than Stated Age, Chronically Ill - Head Exam Head Exam: NORMAL INSPECTION - ENT Exam ENT Exam: Mucous Membranes Moist - Neck Exam Neck Exam: Normal Inspection - Respiratory Exam Respiratory Exam: Decreased Breath Sounds, NORMAL BREATHING PATTERN - Cardiovascular Exam Cardiovascular Exam: REGULAR RHYTHM - GI/Abdominal Exam GI & Abdominal Exam: Soft, Normal Bowel Sounds. absent: Tenderness, Mass - Rectal Exam Rectal Exam: Deferred - Back Exam Back Exam: absent: rash noted - Neurological Exam Neurological Exam: Alert - Psychiatric Exam Psychiatric exam: Anxious, Flat Affect - Skin Skin Exam: Dry, Intact, Warm Assessment and Plan (1) Pneumonia Assessment & Plan: REPEAT CXR AND LABS. Status: Acute (2) Bronchiectasis Assessment & Plan: INFECTED BRONCIECTASIS WITH PNEUMONIA. Status: Chronic (3) Acute exacerbation of COPD with asthma Status: Acute (4) Hypoxia Status: Acute (5) Hypertension, benign essential, goal below 140/90 Status: Chronic (6) Scoliosis deformity of spine Status: Chronic (7) Hypokalemia Status: Acute
--- NOTE | 2017-06-30 17:52 | CP.PCM.PN ---
Subjective - Date & Time of Evaluation Date of Evaluation: 06/30/17 Time of Evaluation: 17:42 - Subjective Subjective: pt finally is agreeable for rehab discussed with SW, and daughter was contacted who also agrees for mother to go to rehab Objective - Vital Signs/Intake and Output Vital Signs (last 24 hours): Temp Pulse Resp BP Pulse Ox 98.7 F 82 20 131/64 93 L 06/30/17 15:00 06/30/17 15:00 06/30/17 15:00 06/30/17 15:00 06/30/17 15:00 Intake and Output: 06/30/17 06/30/17 06:59 18:59 Intake Total 1410 1190 Output Total 400 Balance 1010 1190 - Medications Medications: Current Medications Acetylcysteine (Acetylcysteine 20%) 4 ml INH RQ6 [facility] Last Admin: 06/30/17 13:49 Dose: 4 ml Albuterol/Ipratropium (Duoneb 3 Mg/0.5 Mg (3 Ml) Ud) 3 ml INH RQ6 [facility] Last Admin: 06/30/17 13:49 Dose: 3 ml Amlodipine Besylate (Norvasc) 5 mg PO DAILY [facility] Last Admin: 06/30/17 09:53 Dose: 5 mg Aspirin (Ecotrin) 81 mg PO BID [facility] Last Admin: 06/30/17 17:34 Dose: 81 mg Budesonide (Pulmicort Respules) 0.5 mg INH RQ12 [facility] Last Admin: 06/30/17 07:31 Dose: 0.5 mg Clonazepam (Klonopin) 0.5 mg PO BID PRN PRN Reason: Anxiety Last Admin: 06/30/17 10:00 Dose: 0.5 mg Heparin Sodium (Porcine) (Heparin) 5,000 units SC Q8 [facility] Last Admin: 06/30/17 13:35 Dose: 5,000 units Azithromycin 500 mg/ Sodium (Chloride) 250 mls @ 167 mls/hr IVPB Q24H [facility] Last Admin: 06/30/17 09:54 Dose: 167 mls/hr Cefepime HCl (Maxipime Iv 2 Gm Premix) 2 gm in 100 mls @ 200 mls/hr IVPB Q12H [facility] Last Admin: 06/30/17 12:43 Dose: 200 mls/hr Sodium Chloride (Sodium Chloride 0.45%) 1,000 mls @ 80 mls/hr IV .[id number] [facility] Last Admin: 06/30/17 17:34 Dose: 80 mls/hr Nebivolol (Bystolic) 5 mg PO DAILY [facility] Last Admin: 06/30/17 09:54 Dose: 5 mg Pantoprazole Sodium (Protonix Ec Tab) 40 mg PO DAILY [facility] Last Admin: 06/30/17 09:54 Dose: 40 mg Potassium Chloride (K-Dur 20 Meq Er Tab) 20 meq PO DAILY [facility] Last Admin: 06/30/17 09:53 Dose: 20 meq Rosuvastatin Calcium (Crestor) 10 mg PO HS [facility] Last Admin: 06/29/17 22:48 Dose: Not Given - Labs Labs: 06/29/17 07:04 06/30/17 11:36 APTT 40 SECONDS (21-34) H 06/25/17 19:44 - Constitutional Appears: No Acute Distress, Chronically Ill - Head Exam Head Exam: ATRAUMATIC, NORMOCEPHALIC - Eye Exam Eye Exam: Normal appearance - ENT Exam ENT Exam: Mucous Membranes Moist - Respiratory Exam Respiratory Exam: Decreased Breath Sounds - Cardiovascular Exam Cardiovascular Exam: +S1, +S2 - GI/Abdominal Exam GI & Abdominal Exam: Normal Bowel Sounds - Rectal Exam Rectal Exam: Deferred - Neurological Exam Neurological Exam: Alert, Oriented x3 - Psychiatric Exam Psychiatric exam: Normal Affect, Normal Mood - Skin Skin Exam: Intact Assessment and Plan (1) Pneumonia Status: Acute (2) Hypoxia Status: Acute (3) Scoliosis deformity of spine Status: Chronic (4) Dyspnea Status: Chronic (5) Bronchiectasis Status: Chronic (6) Hypokalemia Status: Acute (7) Anxiety and depression Status: Chronic
--- NOTE | 2017-06-30 17:58 | CP.PCM.DIS ---
Provider - Provider Date of Admission: 06/25/17 17:07 Attending physician: Stan Jason MD Time Spent in preparation of Discharge (in minutes): 25 Diagnosis - Discharge Diagnosis (1) Pneumonia Status: Acute Priority: High (2) Hypoxia Status: Acute Priority: Medium (3) Scoliosis deformity of spine Status: Chronic Priority: Low (4) Dyspnea Status: Chronic (5) Bronchiectasis Status: Chronic (6) Hypokalemia Status: Acute Priority: Medium (7) Anxiety and depression Status: Chronic Hospital Course - Lab Results Lab Results: Micro Results 06/25/17 16:45 Blood Blood Culture - Preliminary NO GROWTH AFTER 4 DAYS 06/25/17 15:10 Blood Blood Culture - Preliminary NO GROWTH AFTER 4 DAYS 06/26/17 08:30 Sputum Gram Stain - Final 06/26/17 08:30 Sputum Sputum Culture - Final NORMAL ORAL ELLIS Most Recent Lab Values WBC 8.9 K/uL (4.8-10.8) 06/29/17 07:04 RBC 3.80 Mil/uL (3.80-5.20) 06/29/17 07:04 Hgb 11.4 g/dL (11.0-16.0) 06/29/17 07:04 Hct 34.4 % (34.0-47.0) 06/29/17 07:04 MCV 90.6 fL (81.0-99.0) 06/29/17 07:04 MCH 29.9 pg (27.0-31.0) 06/29/17 07:04 MCHC 33.0 g/dL (33.0-37.0) 06/29/17 07:04 RDW 13.9 % (11.5-14.5) 06/29/17 07:04 Plt Count 338 K/uL (130-400) 06/29/17 07:04 MPV 10.2 fL (7.2-11.7) 06/29/17 07:04 Neut % (Auto) 76.4 % (50.0-75.0) H 06/29/17 07:04 Lymph % (Auto) 10.9 % (20.0-40.0) L 06/29/17 07:04 [place] % (Auto) 10.9 % (0.0-10.0) H 06/29/17 07:04 Eos % (Auto) 1.1 % (0.0-4.0) 06/29/17 07:04 Baso % (Auto) 0.7 % (0.0-2.0) 06/29/17 07:04 Neut # 6.8 K/uL (1.8-7.0) 06/29/17 07:04 Lymph # 1.0 K/uL (1.0-4.3) 06/29/17 07:04 [place] # 1.0 K/uL (0.0-0.8) H 06/29/17 07:04 Eos # 0.1 K/uL (0.0-0.7) 06/29/17 07:04 Baso # 0.1 K/uL (0.0-0.2) 06/29/17 07:04 Neutrophils % (Manual) 77 % (50-75) H 06/27/17 06:55 Band Neutrophils % 2 % (0-2) 06/27/17 06:55 Lymphocytes % (Manual) 8 % (20-40) L 06/27/17 06:55 Monocytes % (Manual) 12 % (0-10) H 06/27/17 06:55 Eosinophils % (Manual) 1 % (0-4) 06/27/17 06:55 Platelet Estimate Normal (NORMAL) 06/27/17 06:55 RBC Morphology Normal 06/25/17 15:53 Polychromasia Slight 06/27/17 06:55 Hypochromasia (manual) Slight 06/27/17 06:55 Poikilocytosis (manual Slight 06/27/17 06:55 Anisocytosis (manual) Slight 06/27/17 06:55 Ovalocytes Slight 06/27/17 06:55 ESR 98 mm/hr (0-20) H 06/26/17 07:08 APTT 40 SECONDS (21-34) H 06/25/17 19:44 Sodium 135 mmol/L (132-148) 06/30/17 11:36 Potassium 3.8 mmol/L (3.6-5.2) 06/30/17 11:36 Chloride 90 mmol/L (98-107) L 06/30/17 11:36 Carbon Dioxide 40 mmol/L (22-30) H* 06/30/17 11:36 Anion Gap 9 (10-20) L 06/30/17 11:36 BUN 11 mg/dL (7-17) 06/30/17 11:36 Creatinine 0.5 mg/dL (0.7-1.2) L 06/30/17 11:36 Est GFR ( Amer) > 60 06/30/17 11:36 Est GFR (Non-Af Amer) > 60 06/30/17 11:36 Random Glucose 97 mg/dL (65-105) 06/30/17 11:36 Calcium 8.7 mg/dl (8.6-10.4) 06/30/17 11:36 Magnesium 2.1 mg/dL (1.6-2.3) 06/26/17 07:08 Total Bilirubin 0.7 mg/dL (0.2-1.3) 06/25/17 15:53 AST 14 U/L (14-36) 06/25/17 15:53 ALT 28 U/L (9-52) 06/25/17 15:53 Alkaline Phosphatase 88 U/L (38-126) 06/25/17 15:53 Troponin I < 0.0120 ng/mL (0.00-0.120) 06/25/17 15:53 NT-Pro-B Natriuret Pep 854 pg/mL (0-900) 06/25/17 16:34 Total Protein 7.4 g/dL (6.3-8.3) 06/25/17 15:53 Albumin 3.9 g/dL (3.5-5.0) 06/25/17 15:53 Globulin 3.5 gm/dL (2.2-3.9) 06/25/17 15:53 Albumin/Globulin Ratio 1.1 (1.0-2.1) 06/25/17 15:53 Influenza Typ A,B (EIA) Negative for flu a/b (NEGATIVE) 06/25/17 16:39 Ur L.pneumophila Ag Negative (NEGATIVE) 06/26/17 08:30 Mycoplasma pneumon IgM Negative (NEGATIVE) 06/26/17 07:08 Discharge Exam - Head Exam Head Exam: ATRAUMATIC, NORMOCEPHALIC - Eye Exam Eye Exam: Normal appearance - ENT Exam ENT Exam: Mucous Membranes Moist - Neck Exam Neck exam: Normal Inspection - Respiratory Exam Respiratory Exam: Decreased Breath Sounds - Cardiovascular Exam Cardiovascular Exam: +S1, +S2 - GI/Abdominal Exam GI & Abdominal Exam: Normal Bowel Sounds - Rectal Exam Rectal Exam: Deferred - Neurological Exam Neurological exam: Alert, Oriented x3 - Psychiatric Exam Psychiatric exam: Anxious, Normal Affect, Normal Mood - Skin Skin Exam: Intact Discharge Plan - Follow Up Plan Condition: GUARDED Disposition: REHAB FACILITY/REHAB UNIT Patient education suggested?: Yes Instructions: Community Acquired Pneumonia (DC), Bacterial Pneumonia (DC)
--- NOTE | 2017-06-30 19:05 | RAD ---
HISTORY: PNEUMONIA COMPARISON: Portable chest 06/25/2017. FINDINGS: LUNGS: Diminished airspace disease seen the left base with questionable limited scattered airspace disease remaining at the upper and lower right hemithorax. Right apical pleural thickening or fluid again suspected. PLEURA: Minimal left pleural effusion again evident with none on the right. No pneumothorax bilaterally. CARDIOVASCULAR: Normal cardiac size. No definite pulmonary vascular derangement identified. OSSEOUS STRUCTURES: Gross S-shaped thoracolumbar scoliotic deformity reiterated. VISUALIZED UPPER ABDOMEN: Normal. OTHER FINDINGS: None. IMPRESSION: Diminishing left basilar airspace disease with minimal right-sided airspace disease again appreciable. Minimal left pleural effusion again evident though diminished.
[2017-07-01] MEDS: Cefepime IV 2 gm in Dextrose 2 GM/100 ML BAG IVPB SCH ×2 (00:19→12:00)
[2017-07-01] MEDS: Albuterol-Ipratrop 3 mg / 0.5 (3 ml) UD INH SCH ×3 (01:22→13:15)
[2017-07-01] MEDS: Acetylcysteine 20% Inhal Soln (4ml) INH SCH ×3 (01:22→13:15)
[2017-07-01] MEDS: Sodium Chloride 0.45% 1,000 ML IV SCH (05:23)
[2017-07-01 07:20] LABS: BASO # 0.1 K/uL (0.0-0.2); BASO % 0.7 % (0.0-2.0); EOS # 0.3 K/uL (0.0-0.7); EOS % 2.9 % (0.0-4.0); HEMATOCRIT 34.8 % (34.0-47.0); LYMPH # 1.4 K/uL (1.0-4.3); LYMPH % 14.9 % (20.0-40.0); MEAN CELL VOLUME 91.1 fL (81.0-99.0); MEAN CORPUSCULAR HEMOGLOBIN 29.9 pg (27.0-31.0); MEAN CORPUSCULAR HGB CONC 32.8 g/dL (33.0-37.0); MEAN PLATELET VOLUME 9.9 fL (7.2-11.7); MONO # 0.8 K/uL (0.0-0.8); MONO % 8.6 % (0.0-10.0); RED CELL DISTRIBUTION WIDTH 14.2 % (11.5-14.5); WHITE BLOOD COUNT 9.1 K/uL (4.8-10.8)
[2017-07-01 07:37] LABS: CHLORIDE 92 mmol/L (98-107); SODIUM 135 mmol/L (132-148)
[2017-07-01 07:39] LABS: ALKALINE PHOSPHATASE 63 U/L (38-126); AST/SGOT 15 U/L (14-36); BILIRUBIN,TOTAL 0.4 mg/dL (0.2-1.3); CARBON DIOXIDE 39 mmol/L (22-30); GFR AFRICAN-AMERICAN > 60; TOTAL PROTEIN 6.3 g/dL (6.3-8.3)
[2017-07-01] MEDS: Budesonide 0.5 mg/2 ml Inhal Susp UD INH SCH (07:39)
[2017-07-01 07:40] LABS: ALT/SGPT 29 U/L (9-52); BLOOD UREA NITROGEN 12 mg/dL (7-17); CALCIUM 8.6 mg/dl (8.6-10.4); GLUCOSE,RANDOM 105 mg/dL (65-105)
[2017-07-01 09:14] VITALS: PULSE 80; O2SAT 94
[2017-07-01] MEDS: Pantoprazole 40 mg EC Tab PO SCH (09:29)
[2017-07-01] MEDS: Potassium Chloride 20 mEq ER Tab PO SCH (09:31)
[2017-07-01 10:13] LABS: ARTERIAL BLOOD HGB O2 SAT 93.6 % (95.0-98.0); CARBOXYHEMOGLOBIN 1.7 % (0.5-1.5); DRAW SITE L/B; HHB 4.1 % (0.0-5.0); METHEMOGLOBIN 0.6 % (0.0-3.0)
[2017-07-01 17:48] VITALS: BP 153/69; TEMP 98
--- NOTE | 2017-07-02 02:31 | CON ---
DATE: 07/01/2017 CHIEF COMPLAINT/REASON FOR CONSULTATION: The patient was referred by Dr. Jason for evaluation for depression, anxiety and dementia. HISTORY OF PRESENT ILLNESS: The patient is a 77-year-old female who was admitted here for pneumonia, The patient has histtory of anxiety, depression and dementia and referred for comanagement.. The patient only takes Klonopin 0.5 mg daily at home. and in the chart, the patient was prescribed Celexa 20 mg daily, but the patient denies taking it. She states that she has never taken Celexa or citalopram before, although it was noted on her home medication list.. The patient is for discharge today going to subacute rehab. According to the staff, the patient lives alone, and the patient has confusion and also has history of respiratory problems and according to staff,, she tends to desaturate at times. The patient has agreed to go for subacute rehab, but asking if she could take her Klonopin daily, especially in the morning to control her anxiety. PAST PSYCHIATRIC HISTORY: Depression, anxiety as well as dementia. Currently is taking Klonopin and dementia meds. ALLERGIES: THE PATIENT IS ALLERGIC TO MOXIFLOXACIN AND SULFA. MEDICAL HISTORY: As stated, the patient has history of congestive heart failure, hypertension, pneumonia, history of scoliosis, atelectasis, cardiac arrhythmias. PSYCHOSOCIAL HISTORY: Denies any psychosocial history. The patient lives alone. She has an occasional visit here. She is retired. CURRENT MEDICATIONS: List of current medications include Klonopin 0.5 mg p.o. b.i.d. p.r.n. The patient also is on rosuvastatin, heparin, cefepime. The patient is on amlodipine, pantoprazole, Tylenol. The patient could not recall the list of her medications when asked. PHYSICAL EXAMINATION: VITAL SIGNS: Temperature is 97.4, pulse rate is 80, blood pressure 166/74, respirations 20, oxygen sat 94%. REVIEW OF SYSTEMS: GENERAL: The patient is alert and oriented x2, a little bit anxious, seen in one-to-one monitoring. SKIN: No diaphoresis. HEENT: No headache, no dizziness. NECK: Supple. RESPIRATORY: No dyspnea. CARDIOVASCULAR: Chest pain to palpation was intact. GASTROINTESTINAL: No nausea, no vomiting. EXTREMITIES: Gait is steady. MUSCULOSKELETAL: Feels weak. NEUROLOGIC: Alert, but appears to have forgetfulness. GENITOURINARY: No urinary problems. MENTAL STATUS EXAMINATION: Elderly female who is oriented to place. She knows she is in the hospital. She is oriented to date and also oriented to present time and forgetful. Speech is spontaneous. Affect is reactive. Mood is anxious. Thought process is forgetful. Thought content, the patient states she is going to [facility] for subacute rehab. No overt psychosis. No suicidal ideation. Attention and memory seemed to be limited. Insight and judgement is limited. Impulse control is fair. 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 PLAN AND RECOMMENDATIONS: The patient is seen. Meds reviewed. We will keep her off the Celexa for now as the patient is denying taking it at home or this was included in her home medication, but we will change her Klonopin to 0.5 mg daily in the morning. The patient has been taking it daily at home for over a year and wants to continue taking it and we will discontinue the Klonopin 0.5 mg b.i.d. The patient will be going today to [facility] for subacute rehab. Continue antibiotics, continue treatment plan as outlined as well as the patient is on fall precaution. Matt Russo MD [id number]
== END 2017-07-01 18:09 | DRG 190 ==
LOC: C.ER 14:44 → C.9E 17:07 → C.3T 17:35
PROVIDERS: ADMIT Internal Medicine Pulmonary Disease; ATTEND Internal Medicine Pulmonary Disease
DX: J44.0 Chronic obstructive pulmonary disease with (acute) lower respiratory infection (principal); J18.9 Pneumonia, unspecified organism; J47.0 Bronchiectasis with acute lower respiratory infection; I11.0 Hypertensive heart disease with heart failure; I50.9 Heart failure, unspecified; J45.901 Unspecified asthma with (acute) exacerbation; M41.9 Scoliosis, unspecified; F03.90 Unspecified dementia, unspecified severity, without behavioral disturbance, psychotic disturbance, mood disturbance, and anxiety; E87.6 Hypokalemia; F32.9 Major depressive disorder, single episode, unspecified; F41.9 Anxiety disorder, unspecified; F39 Unspecified mood [affective] disorder; R09.02 Hypoxemia; E78.5 Hyperlipidemia, unspecified; E78.00 Pure hypercholesterolemia, unspecified; Z79.899 Other long term (current) drug therapy; Z87.01 Personal history of pneumonia (recurrent); Z87.891 Personal history of nicotine dependence